=== PATIENT | female | born 1960 | race Caucasian/White ===

== ENCOUNTER 2023-06-15 12:55 | Observation (INO) | payer OTHER, SELFPAY ==
[2023-06-15] VITALS (19 sets, daily range): BP systolic 109–149; BP diastolic 70–95; PULSE 68–163; RESP 14–22; TEMP 36.3–36.8; O2SAT 96–100; BMI 32.9
--- NOTE | 2023-06-15 13:18 | ED_ITS ---
HPI - Arrhythmia/Palpitations General Chief Complaint: Arrhythmia/Palpitations Stated Complaint: HEART RACING Time Seen by Provider: 06/15/23 13:17 Source: patient Mode of arrival: walk-in History of Present Illness HPI narrative: Patient presents to emergency department complaining of palpitations. Patient states this started at 7 in the morning. She states that he cannot resolve. Stomach and her dizzy. Patient states she had something like this several months ago but it resolved after an hour. She never sought medical care for it. Patient denies any chest pain, or shortness of breath. She denies any lower extremity edema, cramping. She denies any previous history of heart disease. denies fever, chills, or cough. Denies any upper respiratory infection symptoms. Related Data Home Medications Medication Instructions Recorded Confirmed levothyroxine 175 mcg tablet 175 mcg PO DAILY 06/15/23 06/15/23 Allergies Allergy/AdvReac Type Severity Reaction Status Date / Time No Known Drug Allergies Allergy Verified 06/15/23 13:12 Review of Systems ROS Status of ROS 10 or more systems reviewed and unremarkable except as noted in history and below [facility] Medical History (Updated 06/15/23 @ 17:19 by Keke Spence MD) Exam Narrative Exam Narrative: Nurses notes and vital signs reviewed and patient is not hypoxic. General: Nontoxic, Well-appearing and in no apparent distress. Skin: Warm, dry, no pallor noted. No Rash Head: Normocephalic, atraumatic. Neck: Supple, non-tender. Eye: Pupils are equal, round and EOMI. No scleral icterus. Ears, Nose, Mouth, and Throat: TM clear, no posterior oropharynx erythema or nasal mucosal hypertrophy, uvula is mid-line Oral mucosa is moist Cardiovascular: Irregular tachycardia without murmur, gallop or rub. Respiratory: No accessory muscle use or respiratory distress. Lungs are clear to auscultation, no wheezing, rales or rhonchi Chest Wall: no tenderness Back: No midline thoracic or lumbar vertebral tenderness. No CVA tenderness Musculoskeletal: normal ROM, no calf or popliteal tenderness, no lower extremity edema/swelling GI: Abdomen is soft, non-distended. Normal bowel sounds. No masses appreciated. No tenderness to palpation. No rebound, guarding, or rigidity noted. Neurological: A&O x4. No cranial nerve dysfunction observed. No truncal ataxia. Moves all extremities. Sensation intact. Psychiatric: Cooperative and interactive. Normal mood and affect. Constitutional Vital Signs, click to edit/add: Last Vital Signs Temp 98.0 F 06/15/23 13:01 Pulse 72 06/15/23 17:05 Resp 16 06/15/23 17:05 BP 121/75 06/15/23 17:05 Pulse Ox 98 06/15/23 17:05 O2 Del Method Room Air 06/15/23 16:29 O2 Flow Rate 2 06/15/23 13:56 Course Vital Signs Vital signs: Vital Signs Temperature 98.0 F 06/15/23 13:01 Pulse Rate 163 H 06/15/23 13:01 Respiratory Rate 18 06/15/23 13:01 Blood Pressure 149/95 H 06/15/23 13:01 Pulse Oximetry 98 06/15/23 13:01 Oxygen Delivery Method Room Air 06/15/23 13:01 Temperature 98.0 F 06/15/23 13:01 Pulse Rate 72 06/15/23 17:05 Respiratory Rate 16 06/15/23 17:05 Blood Pressure 121/75 06/15/23 17:05 Pulse Oximetry 98 06/15/23 17:05 Oxygen Delivery Method Room Air 06/15/23 16:29 Oxygen Delivery Flow Rate 2 06/15/23 13:56 MDM - Arrhythmia/Palpitations MDM Narrative Medical decision making narrative: EKG #1 shows supraventricular tachycardia [address] depression inf lateral leads. EKG #2 status post 20 mg of Cardizem IV with the patient on a 10 ml per hour drip shows sinus rhythm of 85 bpm with an incomplete right bundle branch block, subtle ST depressions in the inferior leads with mild Twave inversions. Patient converted to a normal sinus at 75 bpm. The drip was decreased to 5ml per hour.She remains hemodynamically stable. Lab studies and chest x-ray are unremarkable. The patient was discussed with Dr. Marie who will admit the patient if the repeat troponin remains negative. second troponin results discussed with Dr. Marie- Lovenox 1mg/kg SQ is given to the patient. Differential Diagnosis Differential diagnosis: Likely palpitations, anxiety, sinus tachycardia, artial fibrillation, ventricular premature beats and supraventricular tachycardia Lab Data Attestation: I reviewed the patient's lab results. Labs: Lab Results 06/15/23 06/15/23 06/15/23 Range/Units 13:09 13:14 15:45 WBC 8.7 (4.0-11.0) 10^3/uL RBC 4.87 (4.20-5.40) 10^6/uL Hgb 15.2 (12.0-16.0) g/dL Hct 44.6 (36.0-48.0) % MCV 91.6 (81.0-99.0) fL MCH 31.2 (26.7-34.0) pg MCHC 34.1 (29.9-35.2) g/dL RDW 12.1 (11.0-15.0) % Plt Count 217 (150-450) 10^3/uL MPV 11.3 (9.5-13.5) fL Neut % (Auto) 69.2 (43.0-75.0) % Lymph % (Auto) 20.6 (20.5-60.0) % Howard % (Auto) 7.4 (1.7-12.0) % Eos % (Auto) 1.9 (0.9-7.0) % Baso % (Auto) 0.6 (0.2-2.0) % Neut # (Auto) 6.0 (1.4-6.5) 10^3/uL Lymph # (Auto) 1.8 (1.2-3.8) 10^3/uL Howard # (Auto) 0.7 (0.3-0.8) 10^3/uL Eos # (Auto) 0.2 (0.0-0.7) 10^3/uL Baso # (Auto) 0.1 (0.0-0.1) 10^3/uL Abs Immat Gran (auto) 0.03 (0.00-0.03) 10^3/uL Imm/Tot Granulo (auto) 0.3 (0.0-0.5) % PT 9.5 (9.0-11.6) sec INR <0.93 APTT 26.3 (22.3-36.2) sec Sodium 139 (136-145) mmol/L Potassium 4.6 (3.5-5.1) mmol/L Chloride 105 (98-107) mmol/L Carbon Dioxide 22.9 (21.0-32.0) mmol/L Anion Gap 15.7 BUN 16.0 (7.0-18.0) mg/dL Creatinine 1.03 H (0.55-1.02) mg/dL Est GFR ( Amer) >60 (>=60) Est GFR (Non-Af Amer) 55 L (>=60) BUN/Creatinine Ratio 15.5 Glucose 126 H (74-106) mg/dL Calcium 8.9 (8.5-10.1) mg/dL Magnesium 2.2 (1.8-2.4) mg/dL Total Bilirubin 0.7 (0.2-1.0) mg/dL AST 25 (15-37) U/L ALT 22 (14-59) U/L Alkaline Phosphatase 74 (46-116) U/L Troponin I High Sens 19.6 42.3 (4.0-51.3) pg/mL NT-Pro-B Natriuret Pep 852.0 (<=900.0) pg/mL Total Protein 7.8 (6.4-8.2) g/dL Albumin 4.4 (3.4-5.0) g/dL Globulin 3.4 g/dL Albumin/Globulin Ratio 1.3 TSH 1.027 (0.358-3.740) uIU/mL ECG Data Attestation: I personally reviewed and interpreted this ECG as follows: Critical Care Time Critical Care Time Critical Care Time: Yes Total Critical Care Time: 35 Attestation: Critical Care Time: 35 minutes, critical care time is separate from any procedures that are performed. The following was considered in the determination of critical care but not limited to the level medical decision-making, intensive cardiac and/or respiratory monitor, frequent vital sign monitoring, evaluation of laboratory studies, evaluation of a radiographic studies, oxygen monitoring and constant monitoring. Discharge Plan Discharge Chief Complaint: Arrhythmia/Palpitations Clinical Impression: Atrial fibrillation with rapid ventricular response Patient Disposition: Admitted as Observation Time of Disposition Decision: 16:19 Condition: Good
--- NOTE | 2023-06-15 13:23 | ECG_ITS ---
The 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
--- NOTE | 2023-06-15 13:23 | XR_ITS ---
The [address] [address] Patient Name: KYLEE MORELOS MRN: [id number] date: 1960 Sex: F Assigned Patient Location: ER Current Patient Location: ER Accession/Order Number: [id number] Exam Date: 06/15/2023 13:40 Report Date: 06/15/2023 14:22 At the request of: EDDIE LANDIN Procedure: XR chest 1V EXAM: XR chest 1V HISTORY: palpitations COMPARISON: None. TECHNIQUE: Chest X-ray AP, 1 view FINDINGS: Support devices: None. Lungs/pleura: No consolidation, effusion, or pneumothorax. Heart and mediastinum: Normal contours. Bones: No acute abnormality identified. XR/XR chest 1V Impression: No radiographic evidence of acute cardiopulmonary process. Electronically authenticated by: CAESAR GALLARDO Date: 06/15/2023 14:22
[2023-06-15 13:31] LABS: Basophils Absolute Auto 0.1 10^3/uL (0.0-0.1); Basophils Percent Auto 0.6 % (0.2-2.0); Eosinophils Absolute Auto 0.2 10^3/uL (0.0-0.7); Eosinophils Percent Auto 1.9 % (0.9-7.0); Hematocrit 44.6 % (36.0-48.0); Hemoglobin 15.2 g/dL (12.0-16.0); Immature Granulocytes Abs Auto 0.03 10^3/uL (0.00-0.03); Immature Granulocytes Pct Auto 0.3 % (0.0-0.5); Lymphocytes Absolute Auto 1.8 10^3/uL (1.2-3.8); Lymphocytes Percent Auto 20.6 % (20.5-60.0); Mean Corpuscular HGB Conc 34.1 g/dL (29.9-35.2); Mean Corpuscular Hemoglobin 31.2 pg (26.7-34.0); Mean Corpuscular Volume 91.6 fL (81.0-99.0); Mean Platelet Volume 11.3 fL (9.5-13.5); Monocytes Absolute Auto 0.7 10^3/uL (0.3-0.8); Monocytes Percent Auto 7.4 % (1.7-12.0); Neutrophils Percent Auto 69.2 % (43.0-75.0); Platelet Count 217 10^3/uL (150-450); Red Blood Count 4.87 10^6/uL (4.20-5.40); Red Cell Distribution Width 12.1 % (11.0-15.0); White Blood Count 8.7 10^3/uL (4.0-11.0)
[2023-06-15] MEDS: DILTIAZEM HCL 25 MG/5 ML VIAL 20 MG IV (13:39)
[2023-06-15 13:46] LABS: Alanine Aminotransferase 22 U/L (14-59); Albumin Globulin Ratio 1.3; Albumin Level 4.4 g/dL (3.4-5.0); Alkaline Phosphatase 74 U/L (46-116); Anion Gap 15.7; Aspartate Amino Transferase 25 U/L (15-37); BUN Creatinine Ratio 15.5; Bilirubin Total 0.7 mg/dL (0.2-1.0); Calcium 8.9 mg/dL (8.5-10.1); Carbon Dioxide 22.9 mmol/L (21.0-32.0); Chloride 105 mmol/L (98-107); Estimated GFR (African America >60 (>=60); Estimated GFR (Non-African Ame 55 (>=60); Globulin 3.4 g/dL; Glucose 126 mg/dL (74-106); Partial Thromboplastin Time 26.3 sec (22.3-36.2); Potassium 4.6 mmol/L (3.5-5.1); Prothrombin Time 9.5 sec (9.0-11.6); Sodium 139 mmol/L (136-145); Total Protein 7.8 g/dL (6.4-8.2)
[2023-06-15 13:47] LABS: INR <0.93
[2023-06-15] MEDS: dilTIAZem HCL 125 MG in 0.9 % SODIUM CHLORIDE 100 ML 10 MG IV (13:48)
[2023-06-15 13:54] LABS: Troponin I High Sensitivity 19.6 pg/mL (4.0-51.3)
--- NOTE | 2023-06-15 13:54 | ECG_ITS ---
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
--- NOTE | 2023-06-15 13:56 | PC.NURSE ---
O2 started with HR 160's for comfort
[2023-06-15 13:57] LABS: Magnesium 2.2 mg/dL (1.8-2.4); Thyroid Stimulating Hormone 1.027 uIU/mL (0.358-3.740)
--- NOTE | 2023-06-15 14:08 | PC.NURSE ---
NC removed, HR remains in the 80's and pt states feeling better
[2023-06-15 16:09] LABS: Troponin I High Sensitivity 42.3 pg/mL (4.0-51.3)
[2023-06-15] MEDS: ENOXAPARIN SODIUM 100 MG/ML SYRINGE SUBQ (17:01)
[2023-06-15] MEDS: 0.9 % SODIUM CHLORIDE 1,000 ML 70 ML IV (18:17)
[2023-06-15] MEDS: METOPROLOL TARTRATE 25 MG TABLET PO (18:17)
[2023-06-15 18:49] LABS: Troponin I High Sensitivity 47.8 pg/mL (4.0-51.3)
[2023-06-16] VITALS (9 sets, daily range): BP systolic 141; BP diastolic 78; PULSE 54–75; RESP 16; TEMP 36.4; O2SAT 98
[2023-06-16 05:02] LABS: Anion Gap 9.9; BUN Creatinine Ratio 17.9; Calcium 8.5 mg/dL (8.5-10.1); Carbon Dioxide 28.2 mmol/L (21.0-32.0); Chloride 106 mmol/L (98-107); Estimated GFR (African America >60 (>=60); Estimated GFR (Non-African Ame >60 (>=60); Glucose 116 mg/dL (74-106); Potassium 4.1 mmol/L (3.5-5.1); Sodium 140 mmol/L (136-145)
[2023-06-16] MEDS: METOPROLOL TARTRATE 25 MG TABLET PO (08:13)
[2023-06-16] MEDS: APIXABAN 5 MG TABLET PO (08:13)
--- NOTE | 2023-06-16 12:00 | P.HP_ITS ---
H&P: HPI History of Present Illness Chief complaint: HEART RACING, afib rvr Narrative: 62 y/o female to ER with palpitations and heart racing. Woke up in am and felt heart racing. Lightheaded and symptoms worse when up and moving. Mild SOB and chest pressure. Similar episode about 1 month ago and lasted for about 1 hour. Symptoms persisted and to ER. EKG showed rapid afib and given IV cardizem bolus. Rate improved but still elevated and started drip. History of hypothyroidism and TSH normal. CE normal and admitted. Converted to NSR. Started oral metoprolol and stopped cardizem. Feels well this am. Remains in NSR. No palpitations or chest pain. No edema. Review of Systems ROS Constitutional Denies: fever, chills or night sweats Cardiovascular Reports: chest pain, palpitations and lightheadedness; Denies: edema Respiratory Reports: shortness of breath; Denies: cough or wheezing Gastrointestinal Denies: abdominal pain, nausea, vomiting or diarrhea Genitourinary Denies: painful urination [facility] Medical History (Updated 06/16/23 @ 10:10 by Bull Marie MD) Surgical History (Updated 06/15/23 @ 17:57 by Gudelia Varags) Social History (Updated 06/15/23 @ 17:58 by Gudelia Vargas) Previous occupational history: [employer] Meds Home Medications and Allergies Home Medications Medication Instructions Recorded Confirmed Type levothyroxine 175 mcg tablet 175 mcg PO DAILY 06/15/23 06/15/23 History Allergies Allergy/AdvReac Type Severity Reaction Status Date / Time No Known Drug Allergies Allergy Verified 06/15/23 13:12 Exam Constitutional Vital Signs, click to edit/add: Last Vital Signs Temp 97.5 F L 06/16/23 08:19 Pulse 73 06/16/23 10:00 Resp 16 06/16/23 08:19 BP 141/78 06/16/23 08:19 Pulse Ox 98 06/16/23 08:19 O2 Del Method Room Air 06/16/23 08:19 O2 Flow Rate 2 06/15/23 13:56 Documenting provider has reviewed patient's vital signs: yes Common normals: no apparent distress, oriented x3 and alert HENMT Common normals: normocephalic and head/scalp atraumatic Respiratory Common normals: normal respiratory effort and clear to auscultation bilaterally Cardio Common normals: regular rate, regular rhythm, no gallops, no murmurs and no rub GI Common normals: Normal to inspection, nondistended, normoactive bowel sounds present and non-tender Extremity General: no edema Results Labs Labs: Short CBC 06/15/23 Range/Units 13:14 WBC 8.7 (4.0-11.0) 10^3/uL Hgb 15.2 (12.0-16.0) g/dL Hct 44.6 (36.0-48.0) % Plt Count 217 (150-450) 10^3/uL BMP 06/15/23 06/16/23 13:09 04:00 Sodium 139 140 Potassium 4.6 4.1 Chloride 105 106 Carbon Dioxide 22.9 28.2 BUN 16.0 15.0 Creatinine 1.03 H 0.84 Glucose 126 H 116 H Calcium 8.9 8.5 Liver Function 06/15/23 Range/Units 13:09 Total Bilirubin 0.7 (0.2-1.0) mg/dL AST 25 (15-37) U/L ALT 22 (14-59) U/L Alkaline Phosphatase 74 (46-116) U/L Albumin 4.4 (3.4-5.0) g/dL ECG Attestation: ?I have reviewed the pertinent ECG results. Assessment and Plan Assessment and Plan (1) Atrial fibrillation with rapid ventricular response: (2) Hypothyroidism: Plan Presented in rapid afib but converted to NSR. Started metoprolol and stable. Discharge home. Will continue oral metoprolol and Eliquis. F/u with cardiology in 1-2 weeks and will need outpatient testing likely including echo and stress test. Resume synthroid and may need sleep study.
--- NOTE | 2023-06-17 15:56 | CM.DCFOLLOWU ---
Person spoke with:Patient How are you feeling? well How is your pain? no pain Did you understand your discharge instructions? yes Do you have any questions about your discharge instructions? no Were you given any prescriptions at discharge? yes Were you able to get your prescriptions filled? yes Do you understand how to take your medications as ordered? yes Do you have any questions about your follow up appointment and do you plan to keep your follow up appointment? no questions, follow up made with hand clerical verifier Is there anything else that you would like to discuss? no Questions/Comments/Concerns/Other:
== END 2023-06-16 12:39 | disposition home or self-care (01) ==
LOC: ER 17:20 → ICU 17:41
PROVIDERS: Admitting Provider Family Medicine; Emergency Provider Emergency Medicine; Visit Provider Family Medicine
DX: I48.91 Unspecified atrial fibrillation (principal); E03.9 Hypothyroidism, unspecified; Z79.890 Hormone replacement therapy; R06.02 Shortness of breath
CPT/HCPCS: 36415; 71045; 80048; 80053; 83735; 83880; 84443; 84484; 85025; 85610; 85730; 93005; 96365; 96366; 96372; 96376; 99285; G0378

== ENCOUNTER 2023-07-16 07:39 | Outpatient (OUT) | payer OTHER, SELFPAY ==
--- NOTE | 2023-07-16 | PCN_ITS ---
CARDIAC STRESS TEST Requesting Physician:? Procedure Date:? 07/16/2023 This was a treadmill stress test with myocardial perfusion imaging, performed at the [facility] on 07/16/2023.? Informed consent was obtained.? An intravenous line was secured and baseline vital signs and ECG were obtained.? The patient exercised on a treadmill for 6 minutes and 50 seconds, reaching stage 2 of the Jaylen protocol and achieving 7 METS.? Resting heart rate was 70 BPM and maximum heart rate was 139 BPM, representing 86% of maximal predicted heart rate.? Resting blood pressure was 128/88 and maximum blood pressure was 190/92.? Resting ECG showed evidence of sinus rhythm with incomplete right bundle branch block and no ischemic ST changes.? ECG during exercise showed evidence of sinus tachycardia with 1-[address] segment depressions seen in leads 2, 3, AVF, V4, V5 and V6. ?No arrhythmias were noted during exercise.? ECG during recovery showed persistence of the ST segment depressions up to 6 minutes post exercise.? SUMMARY OF THE FINDINGS: 1.? Positive treadmill exercise stress test for exercise induced ischemic ECG changes. 2.? Resting hypertension and exaggerated blood pressure response to exercise. 3.? Matias treadmill score of -3 is associated with intermediate risk for custodial cardiac events. 4.? The patient did not have symptoms of chest pain during the exercise. 5.? Occasional PACs were noted during the exercise. 6.? Myocardial perfusion images will be reported separately. BELKYS
--- NOTE | 2023-07-16 | NM_ITS ---
Patient: KYLEE MORELOS Exam Date: 07/16/2023 : 1960 Gender:F Ordering : LAURO DUFFY Admission #: [id number] Family : Non-Staff Physician Order #: [id number] CLICK HERE TO VIEW EXAM RADIOLOGY REPORT PROCEDURE: NM NINO PERF SPECT REST STR COMPARISON: None. INDICATIONS: PAROXYSMAL ATRIAL FIBRILLATION, ABNORMAL EKG TECHNIQUE: Exam Description: Stress/Rest one day protocol gated SPECT Rest Imagin.0 mCi Tc-99m Cardiolite IV on 07/16/2023 Stress Imaging 31.5 mCi Tc-99m Cardiolite IV on 07/16/2023 Exercise Protocol: Jaylen Heart Rate (bpm): Rest: 70 Max: 139 PMHR: 86 Blood Pressure: Rest: 128/88 Max: 190/92 Exercise Time: Minutes: 6 Seconds: 50 Stage Reached: Stage: 2 Mets 7.0 Symptoms: Rest and peak stress ECG findings were pending and the exercise portion of the study was pending per attending physician Dr. JOHNSON . For more details please see separate cardiac stress test report. FINDINGS: QUALITY OF STUDY: Good. PERFUSION DEFECT: LOCATION: Basal anteroseptal. Basal inferior. Mid-anteroseptal. Apical anterior. SIZE: Large (5 or more segments). SEVERITY: Moderate. TYPE: Persistent. WALL MOTION: Normal. LV SIZE: Enlarged; EDV 151 mL. TID / TCD: None; 0.9 LVEF: Normal. Calculated EF 58%. SUMMARY: Myocardial perfusion imaging study has ABNORMAL findings. CONCLUSION: 1. No reversible ischemia 2. Fixed defects anterior and inferior kohler, LAD and RCA distributions 3. Pending exercise test results Dictated by: Jorge Luis Mclean MD on 07/17/2023 at 13:25 Approved by: Jorge Luis Mclean MD on 07/17/2023 at 13:27
--- NOTE | 2023-07-16 10:40 | CA_ITS ---
Patient: KYLEE MORELOS Exam Date: 07/16/2023 : 1960 Gender:F Ordering : LAURO DUFFY Admission #: [id number] Family : Order #: [id number] CLICK HERE TO VIEW EXAM ECHOCARDIOGRAM REPORT PROCEDURE: CA ECHO DOPPLER COMPLETE INDICATIONS: Paroxysmal Afib COMPARISON: None. DESCRIPTION: COMPLETE ECHOCARDIOGRAM Real-time transthoracic echocardiography with 2D, M-mode, spectral and color flow Doppler performed. QUALITY: Technical quality was adequate. LEFT VENTRICLE: Mild dilatation. Normal left ventricular wall thickness. Global left ventricular systolic function is at the lower limits of normal. LV EF: Calculated left ventricular ejection fraction is 50-55%. DIASTOLIC: Normal diastolic function. ATRIAL SEPTUM: LEFT ATRIUM: Moderate dilatation. RIGHT ATRIUM: Mild dilatation. RIGHT VENTRICLE: Normal chamber size. Normal right ventricular systolic function. TRICUSPID VALVE: Normal mobility and thickness. No stenosis with mild regurgitation. No evidence of pulmonary hypertension. RVSP 31 mmHg MITRAL VALVE: Mildly thickened with normal mobility. No evidence of mitral valve stenosis. Mild mitral annular calcification. Mild mitral regurgitation. AORTIC VALVE: Normal trileaflet appearance. Mildly calcified aortic valve. Normal leaflet mobility. No evidence of aortic valve stenosis. No aortic regurgitation. AORTIC ROOT: Normal diameter and appearance. PULMONIC VALVE: Normal thickness and mobility. No stenosis. Trivial regurgitation. PERICARDIUM: No evidence of pericardial effusion. IVC: Collapses with inspirations. Normal size. PLEURA: CONCLUSION: 1. Mild left ventricular dilatation with low normal systolic function. LVEF is 50 to 55%. 2. Normal right ventricular size and systolic function. 3. Mild to moderate biatrial dilatation. 4. Mild mitral and tricuspid regurgitation. 5. Normal right-sided pressures. Adult Echocardiography Procedure Report Left Ventricle LVEDD (3.7 - 5.6 cm): 5.81 cm LVESD (2.2 - 4.0 cm): 3.72 cm LVIVS thickness (0.6 - 1.2 cm): 0.91 cm LVPW thickness (0.5 - 1.0 cm): 0.81 cm e': 0.10 m/s E - e': 8.75 LVOT Max Gradient: 2.14 mm[Hg] LVOT Area (cm2): 0.73 m/s Peak Velocity (LVOT): 0.73 m/s Mean Velocity (LVOT): 0.55 m/s LVOT Diameter 2.07 cm Left Ventricular Ejection Fraction: 50-55 % Left Atrium LA Volume Index (2D A2C): 56.92 ml/m2 Left Atrium Systolic Dimension: 3.33 cm Mitral Valve MV E to A Ratio: 1.77 Mitral Valve A-Wave Peak Velocity: 0.49 m/s Mitral Valve E-Wave Peak Velocity: 0.86 m/s Right Ventricle RV Internal Diastolic Dimension: 3.68 cm Aorta AO Root Diam: 2.95 cm Ascending Ao Diam: 3.25 cm Aortic Valve AoV Area (Peak Kenneth): 1.57 cm2, 1.57 cm2 AoV Area (VTI): 1.70 cm2, 1.70 cm2 Peak Velocity(Antegrade Flow): 1.57 m/s Peak Gradient(Antegrade Flow): 9.82 mm[Hg] Mean Velocity(Antegrade Flow): 1.10 m/s Mean Gradient(Antegrade Flow): 5.38 mm[Hg] Velocity Time Integral: 37.36 cm Tricuspid Valve Peak Velocity (Regurgitant Flow): 2.68 m/s, 2.35 m/s Pulmonic Valve Mean Gradient: 1.53 mm[Hg], 1.26 mm[Hg] Mean Velocity: 0.58 m/s, 0.53 m/s Peak Velocity: 0.75 m/s Peak Gradient: 2.43 mm[Hg], 2.05 mm[Hg] Right Atrium Right Atrium Systolic Pressure: 57.33 ml, 57.33 ml Dictated by: Bandar Troy M.D. on 07/16/2023 at 17:19 Approved by: Bandar Troy M.D. on 07/16/2023 at 17:22
== END 2023-07-16 07:40 | disposition home or self-care (01) ==
LOC: NM 07:40
PROVIDERS: Visit Provider Nurse Practitioner
DX: I48.0 Paroxysmal atrial fibrillation (principal)
CPT/HCPCS: 78452; 93017; 93306; A9500